=== PATIENT | female | born 1940 | race Caucasian/White ===

== ENCOUNTER 2019-10-01 22:28 | Inpatient (IN) | payer MEDICARE, OTHER ==
[~2019-10-01] VITALS: Ht 162.6 cm; Wt 54.9 kg
[2019-10-02] MEDS ORDERED: TEMAZEPAM 7.5 MG CAPSULE PO PRN (00:30)
[2019-10-02] MEDS ORDERED: MAG HYDROX/AL HYDROX/SIMETH 30 ML UDC PO PRN (00:30)
[2019-10-02] MEDS ORDERED: ACETAMINOPHEN 325 MG TABLET PO PRN (00:30)
[2019-10-02] MEDS ORDERED: LORAZEPAM 0.5 MG TABLET PO PRN (00:30)
[2019-10-02] MEDS ORDERED: MAGNESIUM HYDROXIDE 30 ML UDC PO PRN (00:30)
[2019-10-02] MEDS ORDERED: BLOOD SUGAR DIAGNOSTIC 1 EACH STRIP IN ONE (01:00)
[2019-10-02 02:36] VITALS: BP 136/56
--- NOTE | 2019-10-02 02:44 | NUR ---
GPS LOGGING TRACTOR OPERATOR SWAMP NOTES: ADMITTED 79 Y/O FEMALE. PT ADMITTED FROM [facility] TO GPS UNIT ON A 5150. PER HOLD PT HAS NEEDED PROMOTING TO EAT, SHOWER AND CHANGE HER CLOTHING. PT WAS ALSO REPORTED TO MAKING SUICIDAL STATEMENT. PER PT CLAIMS SHE IS SHE DOESNT KNOW WHY SHE IS HERE AND THAT SHE IS "GOOD". UPON FACE TO FACE ASSESSMENT PT IS A/ O X2, UNCOOPERATIVE, ANXIOUS, NONCOMPLIANT, FORGETFUL, AND EASILY AGITATED. PT HUGH SI AND HI AT THIS TIME. PT REFUSED TO SIGN CONSENT PAPERS. ENVIRONMENTAL SAFETY CHECK Q15MIN. ENCOURAGE PT TO VERBALIZE FEELINGS AND CONCERNS. ORIENTED TO THE UNIT. BELONGING AND CONTRABAND WERE DONE AND CHECKED. NURSING ASSESSMENT DONE. UNABLE TO ASSESS PT BODY AND SKIN DUE TO REFUSAL OF PT. TOOK PICTURE OF PT FACE FOR IDENTIFICATION AND OUT IN CHART. PT RIGHTS DISCUSS BY VICE PRESIDENT MARKETING & DEVELOPMENT. PROVIDED PT WITH HANDBOOK AND MED GUIDE. TOOK PTS INITIAL BLOOD SUGAR. VITALS TAKEN ANS WNL. NO S/S PF RESP DISTRESS. BREATHING EVEN AND UNLABORED. CONTINUE TO MONITOR.
[2019-10-02] MEDS ORDERED: MOMETASONE INH (04:32)
[2019-10-02] MEDS ORDERED: ALBUTEROL HFA INH (04:32)
[2019-10-02] MEDS ORDERED: LORA10TA7 PO (04:32)
[2019-10-02] MEDS ORDERED: ALBU8.5H8 INH (04:32)
[2019-10-02 06:58] LABS: BASOPHILS % (AUTO) 0.8 % (0.0-2.0); EOSINOPHILS % (AUTO) 2.7 % (0.0-6.0); HEMATOCRIT 36 % (33-45); HEMOGLOBIN 11.8 g/dL (11.5-14.8); LYMPHOCYTES # (AUTO) 1.3 /CMM (0.8-4.8); LYMPHOCYTES % (AUTO) 21.6 % (20.0-44.0); MEAN CORPUSCULAR HGB CONC 33 g/dl (31.0-36.0); MEAN CORPUSCULAR VOLUME 81 fL (82-100); MONOCYTES # (AUTO) 0.8 /CMM (0.1-1.30); MONOCYTES % (AUTO) 13.1 % (2.0-12.0); NEUTROPHILS # (AUTO) 3.7 /CMM (1.8-8.9); NEUTROPHILS % (AUTO) 61.8 % (43.0-81.0); PLATELET COUNT (AUTO) 225 /CMM (150-450); RED BLOOD CELL COUNT(AUTO) 4.37 MIL/uL (4.0-5.2)
[2019-10-02 07:22] LABS: CALCIUM, SERUM 9.1 mg/dL (8.5-10.1); CREATININE 1.1 mg/dL (0.6-1.3)
[2019-10-02 07:30] LABS: POTASSIUM 2.7 mmol/L (3.5-5.1)
[2019-10-02 08:00] VITALS: BP 142/72
[2019-10-02 08:01] LABS: CHOLESTEROL 150 mg/dL (<200); HDL CHOLESTEROL 61 mg/dL (40-60); LDL 83 mg/dL (0-99); TRIGLYCERIDES 58 mg/dL (30-150)
[2019-10-02] MEDS ORDERED: MOME17SP (08:12)
[2019-10-02] MEDS ORDERED: ALBU8.5H8 IH (08:12)
--- NOTE | 2019-10-02 08:44 | NUR ---
GPS/RN-NOTES DR. BRASHER MADE AWARE OF PATIENT POTASSIUM LEVEL OF 2.7 WITH T.O ORDER OF POTASSIUM 80 MEQ X1 AND REPEAT BMP TOMORROW. NOTED AND CARRIED OUT.
[2019-10-02] MEDS ORDERED: ALBUTEROL 90 MCG INH SCH (09:00)
[2019-10-02] MEDS: LORATADINE 10 MG TABLET PO SCH (09:18)
[2019-10-02] MEDS: POTASSIUM CHLORIDE 20 MEQ TAB.PRT.SR PO SCH ×2 (09:18→12:29)
--- NOTE | 2019-10-02 12:25 | NUR ---
Family Contact: SW spoke to the pts daughter, Carlotta ([phone]), and informed her that the pt is refusing to speak to her at this time. SW received collateral information from the pts daughter and then went on to discuss that the pt may be discharged back home or to a [place] [facility] [place] facility depending on what her needs are in a few days and how she responds to the treatment. SW stated that she would keep her updated.
--- NOTE | 2019-10-02 13:43 | NUR ---
Initial Discharge Plan: Pt currently lives in her trailer located at [address] [place] [address], [place] [address]; ([phone]). Per pt, she would like to return to her home. SW will work with the pt and the MD regarding appropriate discharge planning. SW will form a safe and proper discharge plan.
[2019-10-02] MEDS ORDERED: MOMETASONE 220 MCG INH SCH (18:00)
[2019-10-02] MEDS ORDERED: OLANZAPINE 2.5 MG TABLET PO SCH (20:00)
[2019-10-02 20:36] VITALS: BP 144/55
[2019-10-03 07:26] LABS: CALCIUM, SERUM 8.6 mg/dL (8.5-10.1); CREATININE 1.2 mg/dL (0.6-1.3); POTASSIUM 3.6 mmol/L (3.5-5.1)
[2019-10-03] MEDS: LORATADINE 10 MG TABLET PO SCH (09:00)
[2019-10-03 09:04] VITALS: BP 130/78
--- NOTE | 2019-10-03 09:21 | NUR ---
GPS/RN-NOTES PATIENT REFUSED CLARITIN 10MG P.O DESPITE EXPLANATION RISK AND BENEFITS. STATED" I WILL NOT TAKE ANY MEDICATION BECAUSE THEY ARE POISON,YOU TAKE IT YOURSELF ". OFFERED X3.
[2019-10-03] MEDS: OLANZAPINE 2.5 MG TABLET PO SCH ×2 (12:30→20:53)
--- NOTE | 2019-10-03 14:09 | NUR ---
GPS/RN-NOTES PATIENT REFUSED ZYPREXA 2.5 MG P.O DESPITE EXPLANATION RISK AND BENEFITS. STATED" I DON'T TAKE THAT BECAUSE WHO EVER ORDER IT WANTS ME ". OFFERED X3.
[2019-10-03 16:08] VITALS: BP 117/53
--- NOTE | 2019-10-03 19:20 | NUR ---
RN OPENING NOTES: PT. RESTING IN BED ,UNCOOPERTIVE CONFUSED PARANOID , HYPERVERBAL ,DISORGNIZED EASILY AGITATED , ALL NEEDS ATTENDED ANTICIPATED, ENCOURAGED PT. TO VERBALIZED ANY FEELING , NO ACUTE DISTRESS NOTED , NEEDS FREQUENTLY REDIRECTIONS , NON COMPLY WITH CARE ,REALITY ORIENTIONS PROVIDED, WILL CONTINUITY WITH CARE.
[2019-10-03 20:00] VITALS: BP 149/70
[2019-10-04 08:00] VITALS: BP 148/74
[2019-10-04] MEDS: LORATADINE 10 MG TABLET PO SCH ×2 (08:06→08:13)
[2019-10-04] MEDS: OLANZAPINE 2.5 MG TABLET PO SCH ×3 (08:06→20:58)
--- NOTE | 2019-10-04 08:14 | NUR ---
RN NOTE: PT REFUSED PO CLARITIN AND ZYPREXA. EDUCATED PT RE IMPORTANCE OF MEDICATION COMPLIANCE. PT CONTINUED TO REFUSE X 3. "THERE'S NOTHING WRONG WITH ME".
--- NOTE | 2019-10-04 09:00 | NUR ---
RN OPENING NOTE: RECEIVED PT LYING IN BED. NO ACUTE DISTRESS NOTED. VSS, AFEBRILE. PT A+OX1.PT REFUSED AM MEDICATIONS X 3. "NOTHING IN WRONG WITH ME". PT IS ISOLATIVE AND WITHDRAWN. + PARANOIA. BELIEVES MEDICATIONS ARE POISON. PT IS UNCOOPERATIVE WITH MEDICATION ADMINISTRATION AND PLAN OF CARE. PT DENIES CURRENT SI/HI/AH/VH. WILL CONT TO MONITOR FOR SAFETY AND BEHAVIOR PER GPS PROTOCOL
[2019-10-04 16:00] VITALS: BP 118/69
--- NOTE | 2019-10-04 19:37 | NUR ---
GPS RN OPENING NOTES: PT. WALKING AROUND THE UNIT , UNCOOPERTIVE ,CONFUSED PARANOID ,DISORGNIZED EASILY AGITATED , ALL NEEDS ATTENDED ANTICIPATED, ENCOURAGED PT. TO VERBALIZED ANY FEELING , NO ACUTE DISTRESS NOTED , NEEDS FREQUENTLY REDIRECTIONS , REALITY ORIENTIONS PROVIDED, WILL CONTINUITY WITH CARE.
[2019-10-04 20:25] VITALS: BP 151/71
[2019-10-04 22:30] VITALS: BP 130/70
--- NOTE | 2019-10-05 07:40 | NUR ---
RN OPENING NOTE: RECEIVED PT LYING IN BED. NO ACUTED DISTRESS NOTED. VSS, AFEBRILE. PT IS DISHEVELED AND UNKEPT. PT ISOLATIVE AND WITHDRAWN. PT COMPLIANT WITH PO MEDICATIONS THIS AM WITH ENCOURAGEMENT. PT IS ANGRY AND BLUNT. PARANOID AND DELUSIONAL. PT UNABLE TO UNDERSTAND CONCEPTS OF ADMISSION. NEEDS FREQUENT REDIRECTION. EASILY AGITATED. PT DENIES SI/HI AT PRESENT TIME. PATIENT EDUCATED ON USE OF THE CALL LANDAVERDE. SIDE RAILS UP X2 FOR SAFETY. BED IN LOW AND LOCKED POSITION. WILL CONT TO MONITOR PT FOR SAFETY AND BEHAVIOR PER GPS PROTOCOL
[2019-10-05 08:00] VITALS: BP 135/57
[2019-10-05] MEDS: OLANZAPINE 2.5 MG TABLET PO SCH ×2 (08:22→20:20)
[2019-10-05] MEDS: LORATADINE 10 MG TABLET PO SCH (08:22)
[2019-10-05 16:09] VITALS: BP 147/64
[2019-10-05 20:11] VITALS: BP 108/93
--- NOTE | 2019-10-06 00:54 | NUR ---
GPS RN NOTES: REFUSED WEEKLY SKIN ASSESSMENT PT REFUSED WEEKLY BODY AND SKIN ASSESSMENT PICTURE DAY. PT EASILY AGITATED AND REQUEST TO BE LEFT ALONE. EXPLAIN RISKS AND BENEFITS. PT STILL REFUSED X3. CONTINUE TO MONITOR.
--- NOTE | 2019-10-06 07:40 | NUR ---
RN OPENING NOTE: RECEIVED PT LYING IN BED. NO ACUTE DISTRESS NOTED. VSS, AFEBRILE. NO RESPIRATORY DISTRESS NOTED. PT IS ANGRY AND EASILY AGITATED. VERBALLY AGRESSIVE. PT IS DISHEVELED AND UNCLEAN. PT INDEPENDENT WITH ADLS AND AMBULATORY. PT COMPLIANT WITH MEDICATION ADMINISTRATION WITH ENCOURAGEMENT. PT RUMINATING RE DISCHARGE. PT DENIES SI/HI AT PRESENT
[2019-10-06 08:00] VITALS: BP 129/57
[2019-10-06] MEDS: LORATADINE 10 MG TABLET PO SCH (08:11)
[2019-10-06] MEDS: OLANZAPINE 2.5 MG TABLET PO SCH ×2 (08:11→21:05)
--- NOTE | 2019-10-06 15:51 | NUR ---
Group Note: SW encouraged pt to attend group therapy on 10/06/19 at 2pm discussing discharge planning. S: I want to be discharged back to my mobile home with my friend sitting here next to me. I do not want to be here in the hospital anymore and I do not want to be placed anywhere. "What are you ladies going to do when you go to [facility]using [facility]." O: Pt was present during the group session and was cooperative. Pt appeared to be in a euthymic mood and presented with an anxious affect. Pt was attentive and provided feedback to all of the other patients who attended. Pt was able to appropriately maintain eye contact and tone of voice throughout the assessment. A: Pt realized that she will be discharged to a location of her choice. She stated that she understands that she has to be in a place that is considered a safe placement but as long as she has her friends around then that means there will be support in her home. P: Pt will continue milieu treatment and medication stabilization.
[2019-10-06 16:00] VITALS: BP 148/73
--- NOTE | 2019-10-06 19:10 | NUR ---
GPS RN OPENING NOTES: RECEIVED PT. RESTING IN BED, A & O X 2, NON COMPLAINT WITH CARE & MEDS, CONFUSED, FORGETFUL, PARANOID, HYPERVERBAL, DISORGANIZED, EASILY AGITATED. DENIES SI/HI AT THIS TIME. AMBULATORY/STEADY PER AM RN REPORT. WILL MONITOR CLOSELY FOR FALL PREVENTION. ALL NEEDS ATTENDED & ANTICIPATED. ENCOURAGED PT. TO VERBALIZED FEELINGS, NO ACUTE DISTRESS NOTED, NEEDS FREQUENT REDIRECTIONS, REALITY ORIENTATION PROVIDED, BED IN LOW LOCKED POSITION. BED ALARM ON. WILL CONTINUE TO MONITOR Q15 MINS. FOR MOOD, SAFETY & BEHAVIOR.
[2019-10-06 20:05] VITALS: BP 133/45
--- NOTE | 2019-10-06 20:45 | NUR ---
GPS RN NOTE PATIENT HAD 2 PUDDING & PO FLUIDS TOLERATED AT THIS TIME. WILL CONTINUE TO ENCOURAGE PO INTAKE TOLERATED.
--- NOTE | 2019-10-07 07:40 | NUR ---
RN OPENING NOTE: RECEIVED PT LYING IN BED. A+OX2. VSS, AFEBRILE. PT UNCOOPERATIVE WITH CARE. REFUSED AM MEDICATIONS MULTIPLE TIMES BEFORE TAKING IT. PT IS DEPRESSED WITH FLAT AFFECT. PT DISHEVELED AND INDEPENDENT WITH ADLS. PT EASILY ANGERED AND AGITATED. NEEDS FREQUENT REDIRECTION. PT PARANOID AND DELUSIONAL. PT DENIES SI/HI/AH/VH AT PRESENT TIME. WILL CONT TO MONITOR PT FOR SAFETY AND BEHAVIOR PER GPS PROTOCOL
[2019-10-07] MEDS: LORATADINE 10 MG TABLET PO SCH (08:12)
[2019-10-07] MEDS: OLANZAPINE 2.5 MG TABLET PO SCH ×4 (08:12→20:08)
--- NOTE | 2019-10-07 12:07 | NUR ---
Probable (PC) Hearing Notification: SW spoke to the pts daughter, Carlotta ([phone]), and informed her of what the hearings entail. She stated that she was on her way to the hospital at this moment and that she would like to be part of the hearing if she can.
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
--- NOTE | 2019-10-07 12:33 | NUR ---
Family Contact: SW spoke to the pts daughter, Carlotta ([phone]), and informed her that the pts hearing has been conducted and that the pt will remain on her hold.
[2019-10-07 16:00] VITALS: BP 136/56
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
[2019-10-07 20:34] VITALS: BP 135/71
[2019-10-08 08:00] VITALS: BP 105/56
[2019-10-08] MEDS: LORATADINE 10 MG TABLET PO SCH (08:13)
[2019-10-08] MEDS: OLANZAPINE 2.5 MG TABLET PO SCH ×2 (08:13→12:12)
[2019-10-08 16:00] VITALS: BP 124/73
--- NOTE | 2019-10-08 16:16 | NUR ---
Group Note: SW encouraged pt to attend group therapy on 10/08/19 at 2pm discussing decision making. Pt was present but refused to cooperate and just listened to the rest of her peers discussing this topic. When the SW asked her at the end of the group why she did not participate, pt stated that she did not care for the topic.
[2019-10-08 20:00] VITALS: BP 125/39
[2019-10-08] MEDS: OLANZAPINE 10 MG TABLET PO SCH (21:24)
[2019-10-08 21:26] VITALS: BP 125/77
[2019-10-09 08:00] VITALS: BP 116/55
[2019-10-09] MEDS: LORATADINE 10 MG TABLET PO SCH (08:39)
[2019-10-09] MEDS: OLANZAPINE 2.5 MG TABLET PO SCH ×2 (08:39→12:08)
--- NOTE | 2019-10-09 10:22 | NUR ---
SNF Referral: SW faxed a referral to [facility] with attn to Luigi to the fax number: [phone].
--- NOTE | 2019-10-09 10:35 | NUR ---
Family Contact: Pts daughter, Carlotta ([phone]), called the SW and stated that she found paperwork at the pts house that would provide her with the power to make financial and medical decisions. SW stated that she would need to send the paperwork to the hospital so we can determine if the pts daughter can make a decision regarding her discharge.
--- NOTE | 2019-10-09 13:46 | NUR ---
SNF Contact: SW spoke to Kat ([phone]) from [facility] who stated that the pt was not accepted because her Medicare became in question after she was in [facility].
[2019-10-09 16:00] VITALS: BP 145/79
[2019-10-09] MEDS: DIVALPROEX SODIUM 125 MG CAP.SPRINK PO SCH (17:25)
[2019-10-09 20:00] VITALS: BP 159/75
[2019-10-09] MEDS: OLANZAPINE 10 MG TABLET PO SCH (22:09)
[2019-10-10 08:00] VITALS: BP 164/93
[2019-10-10] MEDS: OLANZAPINE 2.5 MG TABLET PO SCH ×2 (08:00→12:06)
[2019-10-10] MEDS: DIVALPROEX SODIUM 125 MG CAP.SPRINK PO SCH ×4 (09:00→21:00)
[2019-10-10] MEDS: LORATADINE 10 MG TABLET PO SCH (09:00)
--- NOTE | 2019-10-10 09:37 | NUR ---
RN NOTES PT REFUSED ALL HER MORNING MEDS DESPITE EXPLAINING RISKS AND BENEFITS OF TAKING THEM. WILL CONTINUE TO MONITOR.
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
[2019-10-10 10:00] VITALS: BP_SYST 156; BP_SYST 166; BP_DIAS 66; BP_DIAS 70
--- NOTE | 2019-10-10 11:16 | NUR ---
RN NOTES PT NOTED WITH HIGH BP OF 164/93MMHG, HR 68. PT WITH NO C/O DISTRESS, HEADACHE OR ANY DISCOMFORTS. DR LLANES'S ELOISA HERNANDEZ ON UNIT AND MADE AWARE. WE BOTH WENT TO ROOM TO ASSESS AND RECHECKED PT'S BP ON LEFT ARM 154/66, HR 72 AND RIGHT ARM 166/70M HR 66. ELOISA HERNANDEZ WILL INFORMED TO DR LLANES. WILL CONTINUE TO MONITOR
[2019-10-10] MEDS: VALSARTAN 80 MG TABLET PO SCH (12:52)
[2019-10-10 20:30] VITALS: BP 124/49
[2019-10-10] MEDS: OLANZAPINE 10 MG TABLET PO SCH (21:57)
--- NOTE | 2019-10-10 21:57 | NUR ---
GPS RN NOTE PT REFUSED PM MEDICATIONS ZYPREXA 5MG AND DEPAKOTE 250 MG. ASKING THIS NURSE TO LEAVE HER ROOM AND NOT COME BACK. AGITATED, ANGRY, AND COMBATIVE. REFUSED REDIRECTION. WILL CONTINUE TO MONITOR FOR MOOD, SAFETY AND BEHAVIOR.
--- NOTE | 2019-10-11 03:36 | NUR ---
GPS RN NOTE PT REFUSED PM MEDICATIONS ZYPREXA 5MG AND DEPAKOTE 250 MG. ASKED THIS NURSE TO LEAVE HER ROOM AND NOT COME BACK. PT DID THE SAME THING LAST NIGHT 10/10/19. AGITATED, ANGRY, AND COMBATIVE. REFUSED REDIRECTION. REFUSED PM CARE. PT IS NONE COMPLIANT WITH POC. ISOLATIVE AND WITHDRAWN. WILL CONTINUE TO MONITOR FOR MOOD, SAFETY AND BEHAVIOR.
[2019-10-11] MEDS: OLANZAPINE 2.5 MG TABLET PO SCH ×3 (08:00→12:58)
[2019-10-11] MEDS: LORATADINE 10 MG TABLET PO SCH ×2 (09:00→10:20)
[2019-10-11] MEDS: DIVALPROEX SODIUM 125 MG CAP.SPRINK PO SCH ×3 (09:00→20:25)
[2019-10-11] MEDS: VALSARTAN 80 MG TABLET PO SCH (09:00)
--- NOTE | 2019-10-11 10:30 | NUR ---
REFUSED AM MEDS WELL VITAL SIGNS.
[2019-10-11 16:00] VITALS: BP 116/59
--- NOTE | 2019-10-11 17:30 | NUR ---
PT. REFUSED LAB DRAW TODAY.
--- NOTE | 2019-10-11 18:40 | NUR ---
REFUSED AFTERNOON AND PAPA. MEDS.
--- NOTE | 2019-10-11 19:56 | NUR ---
GPS/RN OPENING NOTES RECEIVED PATIENT IN BED RESTING, RESPIRATIONS EVEN AND UNLABORED. BED LOCKED, CALL LIGHTS WITHIN REACH. RECEIVED REPORT FROM AM RN FOR REYES.
[2019-10-11 20:00] VITALS: BP 122/67
[2019-10-11 20:55] VITALS: BP 151/66
[2019-10-11] MEDS: OLANZAPINE 10 MG TABLET PO SCH (21:00)
[2019-10-12] MEDS: OLANZAPINE 2.5 MG TABLET PO SCH ×2 (08:00→12:23)
[2019-10-12] MEDS: VALSARTAN 80 MG TABLET PO SCH (09:00)
[2019-10-12] MEDS: LORATADINE 10 MG TABLET PO SCH (09:00)
[2019-10-12] MEDS: DIVALPROEX SODIUM 125 MG CAP.SPRINK PO SCH ×2 (09:00→20:37)
--- NOTE | 2019-10-12 11:00 | NUR ---
GPS RN NOTE; RECEIVED PT.IN THE ROOM RESTING IN BED PATIENT NON COMPLIANT WITH MEDICATIONS REFUSED VS , REFUSED LABS , PT STATED "GET OUT OF MY ROOM " ISOLATIVE, VERBALLY ABUSIVE, EASILY AGITATED .WILL FOLLOW CLOSELY FOR BEHAVIOR AND SAFETY.
--- NOTE | 2019-10-12 11:39 | NUR ---
GPS R NOTE: DR HU NOTIFIED PT REFUSING MEDICATIONS NO NEW ORDERS AT THIS TIME.
[2019-10-12 16:00] VITALS: BP 130/80
[2019-10-12] MEDS: ALBUTEROL FS 2.5 MG/3 ML VIAL.NEB NEB PRN (16:34)
[2019-10-12 20:00] VITALS: BP 113/57
[2019-10-12 20:29] VITALS: BP 113/57
[2019-10-12] MEDS: OLANZAPINE 10 MG TABLET PO SCH (21:45)
--- NOTE | 2019-10-13 00:06 | NUR ---
PATIENT REFUSED BODY ASSESSMENT PATIENT REFUSED WEEKLY FULL BODY ASSESSMENT KAYA, STATED," WHY YOU HAVE TO BOTHER ME ? YOU DON'T HAVE TO CHECK ANYTHING." DESPITE OF RISKS & BENEFITS EXPLANATIONS, PT. CONTINUED TO REFUSE FULL BODY ASSESSMENT, EASILY AGITATED & AGGRESSIVE. WILL MONITOR FOR ANY CHANGES.
[2019-10-13 08:00] VITALS: BP 148/66
[2019-10-13] MEDS: OLANZAPINE 2.5 MG TABLET PO SCH ×2 (08:00→13:00)
[2019-10-13] MEDS: VALSARTAN 80 MG TABLET PO SCH (08:59)
[2019-10-13] MEDS: DIVALPROEX SODIUM 125 MG CAP.SPRINK PO SCH ×2 (08:59→21:29)
[2019-10-13] MEDS: LORATADINE 10 MG TABLET PO SCH (08:59)
--- NOTE | 2019-10-13 12:42 | NUR ---
SNF Referral: REYNOLD faxed a referral to [facility] with attn to Brandi to the fax number: [phone].
--- NOTE | 2019-10-13 13:37 | NUR ---
SNF Contact: SW spoke to Brandi ([phone]) from [facility] and she stated that the pt was accepted to their facility.
[2019-10-13 16:00] VITALS: BP 118/55
[2019-10-13] MEDS: ALBUTEROL FS 2.5 MG/3 ML VIAL.NEB NEB PRN (18:32)
[2019-10-13 21:06] VITALS: BP 142/90
[2019-10-13] MEDS: OLANZAPINE 10 MG TABLET PO SCH (21:29)
[2019-10-14 08:00] VITALS: BP 125/50
[2019-10-14] MEDS: OLANZAPINE 2.5 MG TABLET PO SCH ×2 (08:18→12:59)
[2019-10-14] MEDS: DIVALPROEX SODIUM 125 MG CAP.SPRINK PO SCH ×2 (08:21→20:30)
[2019-10-14] MEDS: LORATADINE 10 MG TABLET PO SCH (08:21)
[2019-10-14] MEDS: VALSARTAN 80 MG TABLET PO SCH (08:23)
[2019-10-14 16:00] VITALS: BP 152/81
[2019-10-14] MEDS: ALBUTEROL FS 2.5 MG/3 ML VIAL.NEB NEB PRN (16:09)
[2019-10-14] MEDS: OLANZAPINE 10 MG TABLET PO SCH (21:11)
[2019-10-14 21:44] VITALS: BP 165/68
[2019-10-15] MEDS: OLANZAPINE 2.5 MG TABLET PO SCH ×2 (07:34→12:37)
[2019-10-15 08:00] VITALS: BP 130/59
[2019-10-15] MEDS: LORATADINE 10 MG TABLET PO SCH (08:36)
[2019-10-15] MEDS: DIVALPROEX SODIUM 125 MG CAP.SPRINK PO SCH ×3 (08:36→21:09)
[2019-10-15] MEDS: VALSARTAN 80 MG TABLET PO SCH (08:39)
--- NOTE | 2019-10-15 09:00 | NUR ---
RN NOTE- PT OPPOSITIONAL TO CARE AND MEDS THOUGH MED COMPLIANT AFTER MUCH ENCOURAGEMENT. PT PROFANE AND IRRITABLE. REPEATS "LEAVE ME ALONE"SLEEPING WITH BLANKETS OVER HEAD. DENIES SI HI VH
[2019-10-15] MEDS: ALBUTEROL FS 2.5 MG/3 ML VIAL.NEB NEB PRN (13:25)
--- NOTE | 2019-10-15 13:30 | NUR ---
RN NOTE- PT REQUESTED NEBULIZER . SATURATION 95%. RT CALLED AND ALBUTEROL NEB GIVEN AT THIS TIME.
--- NOTE | 2019-10-15 15:29 | NUR ---
Group Note: SW encouraged pt to attend group therapy on 10/15/19 at 2pm discussing discharge planning but the pt refused to attend and stated that she does not need group therapy. SW stated that the pt was going to be discharged to a longterm facility and the pt was not comprehending this plan and became agitated. Pt presented as verbally and physically aggressive so the SW deemed the pt inappropriate for group at this time.
[2019-10-15 16:00] VITALS: BP 141/61
--- NOTE | 2019-10-15 18:00 | NUR ---
RN NOTE- PT C/O CHEST DISCOMFORT SIMILAR TO EARLIER BEFORE ALBUTEROL BREATHING TX. VS- B/P- 157/60, HR- 90 RR-18, SATURATION 97%RA AFEBRILE 98.6. NO SOB, AMBULATORY, WILL GIVE TYLENOL 650 MG AND MONITOR PT
[2019-10-15] MEDS ORDERED: CLONIDINE HCL 0.1 MG TABLET PO PRN (18:30)
--- NOTE | 2019-10-15 18:30 | NUR ---
RN NOTE- PT C/O CONTINUED MID STERNAL PAIN. DR PEREZ NOTIFIED OF VS AND SX. ORDERED CLONIDINE 0.5 MG Q6PRN SBP> 150. ORDERS COMPLIED WITH. MONITORING PT AND ONCOMING NOC SHIFT.
--- NOTE | 2019-10-15 18:55 | NUR ---
RN NOTE- RECHECK VS- PT STATES PAIN DECREASED. B/P - 130/63, HR 90, SATURATION 95% RA
--- NOTE | 2019-10-15 19:52 | NUR ---
RN NOTES: PT. IN HER ROOM,SUSPICIOUS , HYPERVERVAL ,FORGETFUL NEEDY, ,CONFUSED ,PARANOID , NEEDY ,DISORGNIZED EASILY AGITATED , TALKING TO SELF, ALL NEEDS ATTENDED ANTICIPATED, ENCOURAGED PT. TO VERBALIZED ANY FEELING , NO ACUTE DISTRESS NOTED , NEEDS FREQUENTLY REDIRECTIONS , REALITY ORIENTIONS PROVIDED, WILL CONTINUITY WITH CARE.
[2019-10-15 20:13] VITALS: BP 140/66
[2019-10-15] MEDS: OLANZAPINE 10 MG TABLET PO SCH (21:08)
--- NOTE | 2019-10-16 07:12 | NUR ---
RN NOTES: PT. RESTING WELL AT THIS TIME, NO ACUTE DISTRESS NOTED,NO SOB NOTED, DENIES ANY CHEST DISCOMFORT AT THIS TIME , WILL ENDORSE TO ON COMING NURSE FOR CONTINUITY OF CARE.
[2019-10-16 08:00] VITALS: BP 100/59
[2019-10-16] MEDS: OLANZAPINE 2.5 MG TABLET PO SCH ×2 (08:02→12:23)
[2019-10-16] MEDS: DIVALPROEX SODIUM 125 MG CAP.SPRINK PO SCH ×3 (08:02→21:16)
[2019-10-16] MEDS: LORATADINE 10 MG TABLET PO SCH (08:02)
[2019-10-16] MEDS: VALSARTAN 80 MG TABLET PO SCH (08:03)
[2019-10-16] MEDS: ALBUTEROL FS 2.5 MG/3 ML VIAL.NEB NEB PRN ×3 (09:07→19:00)
--- NOTE | 2019-10-16 10:45 | NUR ---
GPS RN NOTE: PATIENT IS AGITATED AND IRRITABLE. NOT COMPLIANT WITH CARE. FIRST SPIT OUT MEDICATION BUT WITH ENCOURAGEMENT TOOK MEDICATIONS. PATIENT DENIES SI/HI AND VAH. PATIENT IS AGGRESSIVE. ENVIRONMENTAL CHECKS DONE. BED IN LOCKED POSITION, LOW WITH 2 SIDE RAILS UP. WILL CONTINUE TO MONITOR Q15 FOR MOOD, SAFETY AND BEHAVIOR.
--- NOTE | 2019-10-16 11:35 | NUR ---
Family Contact: Pts daughter, Carlotta ([phone]), called the SW and the SW informed her that the pt got accepted to [facility] and once the MD provides a discharge date the pt will be discharged.
--- NOTE | 2019-10-16 14:10 | NUR ---
Individual Intervention with the pt: REYNOLD informed the pt that she will be discharged to [facility] soon and the pt appeared to be paranoid and stated that the water has been poisoned and that she needs a blood test to see what it is.
--- NOTE | 2019-10-16 14:14 | NUR ---
Family Contact: SW called the pts daughter, Carlotta ([phone]), and left a voicemail that informed her that the pt will be discharged on Sunday.
--- NOTE | 2019-10-16 14:25 | NUR ---
Group Note: SW encouraged pt to attend group therapy on 10/16/19 at 2pm discussing reality testing but the pt refused to attend and stated that she wanted to remain asleep. Pt made delusional statements that something was put in her water to make her feel drowsy and the pt told the SW that she wanted a blood test to see what is in her system. SW deemed the pt inappropriate for group therapy at this time.
[2019-10-16 16:00] VITALS: BP 102/60
--- NOTE | 2019-10-16 19:55 | NUR ---
RN NOTES: PATIENT RESTING IN HER ROOM , HYPERVERVAL ,FORGETFUL NEEDY, ,CONFUSED ,PARANOID , NEEDY ,DISORGNIZED EASILY AGITATED , TALKING TO SELF, ALL NEEDS ATTENDED ANTICIPATED, ENCOURAGED PT. TO VERBALIZED ANY FEELING , NO ACUTE DISTRESS NOTED , NEEDS FREQUENTLY REDIRECTIONS , REALITY ORIENTIONS PROVIDED, WILL CONTINUITY WITH CARE.
[2019-10-16 20:05] VITALS: BP 128/61
[2019-10-16] MEDS: OLANZAPINE 10 MG TABLET PO SCH (21:15)
[2019-10-17 08:00] VITALS: BP 142/77
[2019-10-17] MEDS: OLANZAPINE 2.5 MG TABLET PO SCH (08:00)
[2019-10-17] MEDS: DIVALPROEX SODIUM 125 MG CAP.SPRINK PO SCH ×3 (08:00→21:23)
[2019-10-17] MEDS: VALSARTAN 80 MG TABLET PO SCH (09:00)
[2019-10-17] MEDS: LORATADINE 10 MG TABLET PO SCH (09:00)
--- NOTE | 2019-10-17 09:00 | NUR ---
GPS RN NOTES Patient asleep and resting in bed at this time. Patient refused AM medications. Explained risks and benefits of medications. Patient still refused. Will continue to monitor.
--- NOTE | 2019-10-17 09:30 | NUR ---
GPS RN NOTES Patient awake and resting in bed. Offered and refused AM medications. Explained risks and benefits of medications. Patient still refused. Patient stated, " I don't want them. Go away." Will continue to monitor.
--- NOTE | 2019-10-17 10:43 | NUR ---
Family Contact: SW called the pts daughter, Carlotta ([phone]), and left a voicemail that informed her that the pt will be discharged on Sunday at 12pm.
--- NOTE | 2019-10-17 10:45 | NUR ---
RT PT CALLED FOR TX WENT TO GO ASSESS HER PT REFUSED TX NO SOB SAT 97% HR 90 RR 16 CLEAR EQUAL BILATERAL BREATH SOUNDS NO WHEEZING UPON AUSCULTATION NO RESP DISTRESS INFORMED KT CAO
--- NOTE | 2019-10-17 15:34 | NUR ---
GPS RN NOTES Patient refused lab draws at this time. Explained procedure, risks and benefits. Patient still refused. Notified hydroelectric station operator. hydroelectric station operator spoke with Patient. Patient still refusing. Patient in stable condition. No SOB nor acute distress at this time. Will continue to monitor.
[2019-10-17 16:00] VITALS: BP 130/53
[2019-10-17] MEDS: ALBUTEROL FS 2.5 MG/3 ML VIAL.NEB NEB PRN ×2 (17:34→20:56)
[2019-10-17 20:00] VITALS: BP 147/50
[2019-10-17] MEDS ORDERED: OLANZAPINE 10 MG TABLET PO SCH (22:00)
[2019-10-18 08:00] VITALS: BP 152/67
[2019-10-18] MEDS: LORATADINE 10 MG TABLET PO SCH (08:35)
[2019-10-18] MEDS: OLANZAPINE 2.5 MG TABLET PO SCH (08:35)
[2019-10-18] MEDS: DIVALPROEX SODIUM 125 MG CAP.SPRINK PO SCH ×3 (08:35→21:00)
[2019-10-18] MEDS: VALSARTAN 80 MG TABLET PO SCH (08:35)
[2019-10-18 16:00] VITALS: BP_SYST 129; BP_SYST 139; BP_DIAS 60; BP_DIAS 66
[2019-10-18 20:00] VITALS: BP 155/59
--- NOTE | 2019-10-18 20:14 | NUR ---
GPS RN OPENING NOTE: RECEIVED PT. RESTING IN ROOM. A/O X 1, DISORGANIZED, NEEDY, PARANOID,HYPERVERBAL ,PARANOID,EASILY AGITATED,NO SOB NOTED, NO ACUTE DISTRESS NOTED. VERBALIZATION OF FEELINGS ENCOURAGED.SAFETY PRECAUTIONS MPLEMENTED. WILL CONTINUE TO MONITOR Q15MIN ROUNDS FOR SAFETY AND BEHAVIOR.
[2019-10-18] MEDS ORDERED: OLANZAPINE 10 MG TABLET PO SCH (22:00)
--- NOTE | 2019-10-18 22:20 | NUR ---
rn gps notes patient refused scheduled medication offered x3 despite risk and benefits explained. refused depakote and zyprexa as scheduled. will continue to monitor behavior. patient noted to be agitated and irritable redirect to room.
[2019-10-19 08:00] VITALS: BP 106/66
[2019-10-19] MEDS: OLANZAPINE 2.5 MG TABLET PO SCH (08:35)
[2019-10-19] MEDS: LORATADINE 10 MG TABLET PO SCH (08:35)
[2019-10-19] MEDS: DIVALPROEX SODIUM 125 MG CAP.SPRINK PO SCH ×3 (08:35→21:18)
[2019-10-19] MEDS: VALSARTAN 80 MG TABLET PO SCH (08:36)
[2019-10-19] MEDS: ALBUTEROL FS 2.5 MG/3 ML VIAL.NEB NEB PRN ×2 (13:37→21:39)
[2019-10-19 16:00] VITALS: BP 107/50
[2019-10-19] MEDS ORDERED: OLANZAPINE 10 MG TABLET PO SCH (17:39)
--- NOTE | 2019-10-19 20:30 | NUR ---
RN NOTES: PT. REFUSED WEEKLY FULL BODY SKIN ASSESSMENT AND PICTURES TO BE TAKEN, ENCOURAGED X 3 , RISKS AND BENEFITS EXPLINED , STILL REFUSED ,PT. BEHAVIOR UNCOOPERATIVE AND AGGRESSIVE AT THIS TIME , WILL CONTINUITY WITH CARE.
[2019-10-19 21:12] VITALS: BP 136/97
[2019-10-20 08:00] VITALS: BP 117/47
[2019-10-20] MEDS: OLANZAPINE 2.5 MG TABLET PO SCH (08:18)
[2019-10-20] MEDS: DIVALPROEX SODIUM 125 MG CAP.SPRINK PO SCH ×2 (08:18→12:13)
[2019-10-20 08:19] VITALS: BP 117/47
[2019-10-20] MEDS: VALSARTAN 80 MG TABLET PO SCH (08:19)
[2019-10-20] MEDS: LORATADINE 10 MG TABLET PO SCH (08:19)
--- NOTE | 2019-10-20 08:34 | NUR ---
SNF Contact: REYNOLD spoke to Brandi ([phone]) from [facility] and she stated that the pt no longer has a bed for admission today.
--- NOTE | 2019-10-20 08:35 | NUR ---
SNF Referral: SW faxed a referral to [facility] with attn to Kassidy to the fax number: [phone].
--- NOTE | 2019-10-20 13:05 | NUR ---
SNF Contact: SW spoke to CJ ([phone]) from [facility] who stated that the pt was accepted to their facility.
--- NOTE | 2019-10-20 13:50 | NUR ---
RN NOTE: REPORT GIVEN TO JOSE MERAZ AT [facility] AT [phone].
--- NOTE | 2019-10-20 14:15 | NUR ---
BAKERY PRODUCTS CHECKER NOTE: 79 YEAR OLD FEMALE DISCHARGED TO [facility] IN STABLE CONDITION. PT COMPLIANT WITH MEDICATIONS, COOPERATIVE WITH TREATMENT PLAN. PATIENT DENIES SI/HI AND INSTRUCTED TO GO TO THE CLOSEST ER IF DEVELOPING SI/HI. BEHAVIOR IMPROVED, PSYCHIATRIC TREATMENT PLANS MET, MEDICAL TREATMENT PLANS DEFERRED FOR CONTINUAL MONITORING. EDUCATED PT ABOUT AFTER CARE PLAN AND COPY PROVIDED. RETURNED PERSONAL BELONGINGS TO PT. MEDICATIONS RECONCILED WITH DR. GONZALEZ AND Akhil VILCHIS PROPERTY COORDINATOR FOR CONTINUITY OF CARE. PT UNABLE TO SIGN DISCHARGE PAPERWORK AND REFUSED ADMISSION/DISCHARGE SKIN ASSESSMENT. PT IS AMBULATORY, CONTINENT AND INDEPENDENT WITH SELF CARE. IDENTIFICATION BAND REMOVED AND PT LEFT THE UNIT AT 1415 VIA GURNEY WITH EMS TO BE TRANSPORTED VIA AMBULANCE : TRIP [phone]
--- NOTE | 2019-10-20 15:00 | NUR ---
Discharge Note: Pt was discharged to [facility] located at [address] [place] [id number]; . Pt was transported via [facility] at 2PM. Pts daughter, Carlotta ([phone]), was made aware of the placement. Upon discharge, the pt appeared to be in a euthymic mood and presented with a distressed affect. Pt appeared to be oriented x3 (time, place and self). Pt appeared to be disheveled and ungroomed. Pt denied both suicidal and homicidal ideation as well as auditory and visual hallucinations. Pt will continue to be under the care of her psychiatrist, Dr. Gupta, located at [address], [place] [address]; and cableman, Dr. Gee, located at [address] [place] [address]; .
== END 2019-10-20 14:15 | DRG 885 ==
LOC: GPS 22:28
PROVIDERS: ADMIT Psychiatry & Neurology Psychosomatic Medicine; ATTEND Student in an Organized Health Care Education/Training Program
DX: F25.9 Schizoaffective disorder, unspecified (principal); G93.41 Metabolic encephalopathy; E87.0 Hyperosmolality and hypernatremia; F29 Unspecified psychosis not due to a substance or known physiological condition; F41.9 Anxiety disorder, unspecified; E86.0 Dehydration; E87.6 Hypokalemia; I10 Essential (primary) hypertension; J44.9 Chronic obstructive pulmonary disease, unspecified; K59.00 Constipation, unspecified; Z91.19 Patient's noncompliance with other medical treatment and regimen
CPT/HCPCS: 36415; 80048-TC; 80061-TC; 80164-TC; 82962-TC; 84443-TC; 85025-TC; 87081-TC; 92611-TC; 97116-TC; 97530-TC

== ENCOUNTER 2019-10-23 09:54 | Inpatient (IN) | payer MEDICARE, OTHER ==
[~2019-10-23] VITALS: Ht 154.9 cm; Wt 54.4 kg
[~2019-10-23 09:54] MED LIST: ALBU8.5H8 IH; ALBU8.5H8 INH; LORA10TA7 PO; MOME17SP
--- NOTE | 2019-10-23 10:00 | NUR ---
[facility] C/O R HIP PAIN S/P GLF, PT IS AAOX3, NOTED LOW O2 SAT AT 89% ON RA, HOOKED TO 2LPM VIA NC AND CARDIAC MONTIOR, KEPT RESTED AND COMFORTABLE, WILL CONTINUE TO MONITOR.
[2019-10-23] MEDS ORDERED: ACET-868 PO ×2 (10:11)
[2019-10-23] MEDS ORDERED: DIVA125C2 PO (10:11)
[2019-10-23] MEDS ORDERED: VALS80TA31 PO (10:11)
[2019-10-23] MEDS ORDERED: OLAN5TAB3 PO (10:11)
[2019-10-23] MEDS ORDERED: MAGN400O6 PO (10:11)
[2019-10-23] MEDS ORDERED: MAG30ORA PO (10:11)
[2019-10-23] MEDS ORDERED: CLON0.1T PO (10:11)
[2019-10-23] MEDS ORDERED: ALBU2.5V38 IH ×2 (10:11)
[2019-10-23] MEDS ORDERED: OLAN10TA3 PO (10:11)
--- NOTE | 2019-10-23 10:15 | NUR ---
SEEN AND EXAMINED BY DR. AREVALO.
--- NOTE | 2019-10-23 10:20 | NUR ---
IV LINE ESTABLISHED, BLOOD DRAWN AND SENT TO LAB.
--- NOTE | 2019-10-23 10:25 | NUR ---
URINE SPECIMEN COLLECTED VIA PEREZ CATH AND SENT TO LAB.
[2019-10-23 10:31] LABS: BASOPHILS # (AUTO) 0.1 /CMM (0.0-0.2); BASOPHILS % (AUTO) 0.9 % (0.0-2.0); EOSINOPHILS % (AUTO) 0.3 % (0.0-6.0); HEMATOCRIT 38 % (33-45); HEMOGLOBIN 12.2 g/dL (11.5-14.8); LYMPHOCYTES # (AUTO) 0.5 /CMM (0.8-4.8); MEAN CORPUSCULAR HGB CONC 32 g/dl (31.0-36.0); MEAN CORPUSCULAR VOLUME 83 fL (82-100); MONOCYTES # (AUTO) 0.7 /CMM (0.1-1.30); MONOCYTES % (AUTO) 5.9 % (2.0-12.0); NEUTROPHILS # (AUTO) 10.4 /CMM (1.8-8.9); NEUTROPHILS % (AUTO) 88.9 % (43.0-81.0); PLATELET COUNT (AUTO) 210 /CMM (150-450); RED BLOOD CELL COUNT(AUTO) 4.54 MIL/uL (4.0-5.2); WHITE BLOOD COUNT (AUTO) 11.7 K/uL (4.3-11.0)
--- NOTE | 2019-10-23 10:33 | NUR ---
MEETING SPECIALIST AT BEDSIDE FOR XRAY.
[2019-10-23] MEDS ORDERED: ONDANSETRON HCL/PF 4 MG/2 ML VIAL ONE (10:36)
[2019-10-23] MEDS ORDERED: MORPHINE SULFATE INJ 2 MG/ML DISP.SYRIN ONE (10:37)
[2019-10-23 10:40] LABS: CALCIUM, SERUM 8.9 mg/dL (8.5-10.1); CARBON DIOXIDE 27 mmol/L (21-32); CHLORIDE 104 mmol/L (98-107); CREATININE 1.1 mg/dL (0.6-1.3); GLUCOSE 172 mg/dL (74-106); POTASSIUM 4.2 mmol/L (3.5-5.1); SODIUM SERUM 139 mmol/L (136-145); UREA NITROGEN, BLOOD 29 mg/dL (7-18)
[2019-10-23 10:52] LABS: ALANINE AMINOTRANSFERASE 34 U/L (12-78); ALBUMIN 3.1 g/dL (3.4-5.0); ALKALINE PHOSPHATASE 108 U/L (46-116); ASPARTATE AMINOTRANSFERASE 25 U/L (15-37); B-TYPE NATRIURETIC PEPTIDE 1746 PG/ML (0-125); BILIRUBIN,DIRECT 0.1 mg/dL (0.0-0.2); BILIRUBIN,TOTAL 0.4 mg/dL (0.2-1.0); TOTAL PROTEIN, SERUM 7.6 g/dL (6.4-8.2)
[2019-10-23] MEDS ORDERED: MORPHINE SULFATE INJ 2 MG/ML DISP.SYRIN IV ONE (11:00)
[2019-10-23 11:01] LABS: APPEARANCE,URINE Clear (CLEAR); BILIRUBIN,URINE Negative (NEGATIVE); BLOOD, URINE Trace-intact Ery/uL (NEGATIVE); COLOR,URINE Yellow (YELLOW); KETONES,URINE Trace (NEGATIVE); LEUKOCYTE ESTERASE ,URINE Negative (NEGATIVE); NITRITE, URINE Negative (NEGATIVE); PROTEIN,URINE Negative (NEGATIVE); UGLUCOSE Negative (NEGATIVE); UROBILINOGEN,URINE 0.2 EU/dL (0.2)
[2019-10-23 11:10] LABS: BACTERIA,URINE Few /HPF (None Seen); SQUAMOUS EPITHELIAL CELL,UR Few /HPF (None Seen); WBC,URINE 0-2 /HPF (0-3)
--- NOTE | 2019-10-23 11:17 | NUR ---
SPOKED TO PT'S DAUGHTER SANTANA FOR UPDATE NUMBER: [phone]
[2019-10-23] MEDS ORDERED: ONDANSETRON HCL/PF - ER 4 MG/2 ML VIAL IV ONE (11:30)
--- NOTE | 2019-10-23 12:20 | NUR ---
CALLED FOR MS BED AND SUBMITTED MOVE SHEET TO ADMITTING
--- NOTE | 2019-10-23 12:23 | NUR ---
GOT BED 309-1
[2019-10-23] MEDS ORDERED: AZITHROMYCIN 500 MG in IV D5W 250 ML IV ONE (12:30)
[2019-10-23] MEDS ORDERED: CEFTRIAXONE 1GM BAG (ER ONLY) 1 GM/50 ML PIGGYBACK IV ONE (12:30)
--- NOTE | 2019-10-23 12:40 | NUR ---
REPORT GIVEN TO KT SARMIENTO FOR REYES, WITH ONGOING ANTIBIOTIC.
[2019-10-23] MEDS ORDERED: CEFTRIAXONE 1 G in IV D5W 50 ML IV ONE (13:00)
--- NOTE | 2019-10-23 13:15 | NUR ---
MS BOX CUTTER NOTES Received Patient resting in bed. A/O x 1. VS stable with no acute distress. Breathing even and unlabored on 2LPM via NC with no respiratory distress. Patient stated pain on right hip upon movement but otherwise comfortable upon rest. Will continue to monitor and will intervene as ordered. Rios Cath in place and patent. 18g PIV on LAC clean, intact, patent and flushing well with D51/2NS infusing at 75ml/hr. Safety precautions in place. Bed locked and set to lowest position with side rails x 2 up. All needs rendered at this time. Call light within reach. Will continue to monitor.
[2019-10-23] MEDS ORDERED: ACETAMINOPHEN 325 MG TABLET PO PRN (14:30)
[2019-10-23] MEDS ORDERED: MAG HYDROX/AL HYDROX/SIMETH 30 ML UDC PO PRN (14:30)
[2019-10-23] MEDS ORDERED: ZOLPIDEM TARTRATE 5 MG TABLET PO PRN (14:30)
[2019-10-23] MEDS ORDERED: MAGNESIUM HYDROXIDE 30 ML UDC PO PRN (14:30)
[2019-10-23] MEDS ORDERED: Z GUARD REMEDY 2 OZ OINT TP PRN (14:30)
[2019-10-23] MEDS ORDERED: ONDANSETRON HCL/PF 4 MG/2 ML VIAL IVP PRN (14:30)
--- NOTE | 2019-10-23 14:33 | NUR ---
MS RN NOTES Patient removing and pulling on lines. Reoriented Patient and provided comfort measures. Patient still attempting to remove lines. Notified Nyasia DARDEN. Per MD, may order bilateral soft wrist restraints. Order noted and carried out. Patient in stable condition. Will continue to monitor.
[2019-10-23] MEDS: IV D5/0.45 NACL 1,000 ML IV PRN (15:31)
[2019-10-23 16:00] VITALS: BP 134/68
--- NOTE | 2019-10-23 18:20 | NUR ---
GAIL (COUSIN) - Per Carlotta (daughter), Gail makes the medical decisions for Patient. Social Service consult ordered for DPOA arrangement.
--- NOTE | 2019-10-23 18:25 | NUR ---
MS RN CLOSING NOTES Patient asleep and resting in bed. A/O x 1. VS stable with no acute distress. Breathing even and unlabored on 2LPM via NC with no respiratory distress. Denies pain. No signs and symptoms of pain at this time. Rios Cath in place and patent. 18g PIV on LAC clean, intact, patent and flushing well with D51/2NS infusing at 75ml/hr. Safety precautions in place. Soft wrist restraint applied to left wrist. Patient comfortable and compliant with care. Bed locked and set to lowest position with side rails x 2 up. All needs rendered at this time. Call light within reach. Will endorse plan of care to oncoming shift.
--- NOTE | 2019-10-23 19:45 | NUR ---
EYE CLINIC MANAGER: RECEIVED REPORT FROM KILEY MERAZ. PT IN BED, AWAKE, A/O X1, TRYING TO GET OUT OF BED ALTHOUGH SHE'S IN RESTRAINT. PER DAY REPORT PT PULLING OUT LINE AND PEREZ CATHETER. PT OBTAINED RIGHT HIP FRACTURE. IV ACCESS PATENT AND FLUSHING WELL, INFUSING WITH D5 1/2 NS AT 75ML/HR. RECEIVED WITH BILATERAL SOFT WRIST RESTRAINT IN PLACED, PT NOTED WITH GOOD CAPILLARY REFILL, ABLE TO MOVE AND WIGGLE ARMS AND HANDS, RADIAL PULSES PALPABLE. SEEN BY ORTHO/DUGLAS LEODAN. NEEDS CARDIAC CLEARANCE FOR POSSIBLE SURGERY. FOR PT EVAL IN AM. DR BRASHER MADE AWARE OF PT'S MED RECON, PER MD SHE WILL TAKE A LOOK AT IT. SAFETY PRECAUTIONS FOR FALL INITIATED, CALL LIGHT IN REACH, WILL CONTINUE MONITORING PT.
[2019-10-23 20:00] VITALS: BP 142/66
--- NOTE | 2019-10-23 20:39 | NUR ---
rn notes: contacted hospitalist duplication specialist regarding orders, pt pulling out lines and pettit catheter, trying to get out of bed, received with bilateral soft wrist restraint. will need orders from
--- NOTE | 2019-10-23 21:14 | NUR ---
RN NOTES: RECEIVED CALL BACK FROM HOSPITALIST CHICLE GRINDER FEEDER, PER MD ORTIZ TO PUT ON BILATERAL SOFT WRIST RESTRAINT. ORDER READ BACK VERIFIED AND CARRIED OUT. NUTRITIONIST PUBLIC HEALTH PAT MADE AWARE.
--- NOTE | 2019-10-23 22:00 | NUR ---
RN NOTES: RELEASE OF RESTRAINT PROVIDED, HOWEVER PT BECAME VERY AGGRESSIVE, HANDS WENT STRAIGHT TO WHERE CATHETER IS, GOOD THING FIRE PREVENTION CAPTAIN CAUGHT IT, PT ALSO TRIED HITTING STAFF. PUT BACK PT'S RESTRAINT.
[2019-10-23 22:13] VITALS: BP 135/66
--- NOTE | 2019-10-23 22:30 | NUR ---
rn notes: feed pt with 1 cup of pudding, and provided with thickened cranberry juice, pt consumed 1005, no n/v noted, kept on aspirations precautions
--- NOTE | 2019-10-23 23:21 | NUR ---
prn norco: utilized flacc scale, pt noted to have frequent frowns, uneasy, moaning, when ask pt she said its painful when she's moving her right leg, when ask to rate pt didnt answer, pt is confused, a/o x1, flacc scale score of 6. per clinical assessment, recommends pain medication, prn norco 5/325 mg tab po administered to pt at this time. will continue to monitor and reassess .
[2019-10-23] MEDS: HYDROCODONE/APAP 5/325MG 1 EACH TABLET PO PRN (23:24)
[2019-10-24] VITALS (9 sets, daily range): BP systolic 99–142; BP diastolic 47–93
--- NOTE | 2019-10-24 01:00 | NUR ---
RN NOTES: SEEN PT SLEEPING, SNORING, APPEARS CALM AND COMFORTABLE, NO FACIAL GRIMACE NOTED.
[2019-10-24] MEDS: IV D5/0.45 NACL 1,000 ML IV PRN (03:35)
[2019-10-24 06:25] LABS: BASOPHILS % (AUTO) 0.5 % (0.0-2.0); EOSINOPHILS % (AUTO) 2.1 % (0.0-6.0); HEMATOCRIT 35 % (33-45); HEMOGLOBIN 11.5 g/dL (11.5-14.8); LYMPHOCYTES # (AUTO) 1.1 /CMM (0.8-4.8); LYMPHOCYTES % (AUTO) 13.9 % (20.0-44.0); MEAN CORPUSCULAR HGB CONC 33 g/dl (31.0-36.0); MEAN CORPUSCULAR VOLUME 84 fL (82-100); MONOCYTES # (AUTO) 0.7 /CMM (0.1-1.30); MONOCYTES % (AUTO) 9.6 % (2.0-12.0); NEUTROPHILS # (AUTO) 5.7 /CMM (1.8-8.9); NEUTROPHILS % (AUTO) 73.9 % (43.0-81.0); PLATELET COUNT (AUTO) 174 /CMM (150-450); RED BLOOD CELL COUNT(AUTO) 4.21 MIL/uL (4.0-5.2); WHITE BLOOD COUNT (AUTO) 7.8 K/uL (4.3-11.0)
--- NOTE | 2019-10-24 06:37 | NUR ---
rn notes: contacted ymaile [phone], no answer, directs thru a voicemail, left a message, awaiting for call back. this call is to made family aware of the restraint ordered for the pt due to aggressive behavior, and episode of pulling out lines and pettit catheter.
--- NOTE | 2019-10-24 06:41 | NUR ---
END OF SHIFT REPORT: PRN NORCO ADMINISTERED FOR C/O RIGHT HIP PAIN. PT ABLE TO SWALLOW, CARDIAC PUREED DIET, ASPIRATIONS PRECAUTIONS FOLLOWED. REMAINS ON 2L OXYGEN, PT 90% SPO2 ON RA. REMAINS A/O X1, CONFUSED, WITH BILATERAL SOFT WRIST RESTRAINT. PT ABLE TO MOVE AND WIGGLE ARMS AND HANDS, WITH GOOD CAPILLARY REFILL NOTED, RADIAL PULSES PALPABLE, NO S/S OF IMPEDIMENT IN CIRCULATION NOTED. PEREZ CATHETER REMAINS IN PLACED, BAG EMPTIED BY PROCESSING TECH. FOR PT EVAL TODAY, CARDIO CURRENTLY IN THE UNIT, NOTIFIED DR ALBERTO FOR CARDIAC CLEARANCE FOR POSSIBLE SURGERY. VS REMAINS STABLE, NEEDS ATTENDED. SAFETY PRECAUTIONS FOR FALL REMAINS ENGAGED, CALL LIGHT IN REACH, WILL ENDORSE TO DAY RN FOR CONTINUITY OF CARE.
[2019-10-24 06:52] LABS: CALCIUM, SERUM 8.7 mg/dL (8.5-10.1); MAGNESIUM 2.2 mg/dL (1.8-2.4); PHOSPHORUS 3.3 mg/dL (2.5-4.9); POTASSIUM 4.4 mmol/L (3.5-5.1)
[2019-10-24] MEDS ORDERED: DIVALPROEX SODIUM 125 MG CAP.SPRINK PO SCH (07:00)
[2019-10-24] MEDS ORDERED: ACETAMINOPHEN 325 MG TABLET PO PRN ×2 (07:00→08:30)
[2019-10-24] MEDS ORDERED: ALBUTEROL FS 2.5 MG/3 ML VIAL.NEB IH PRN (07:00)
[2019-10-24 07:07] LABS: THYROID STIMULATING HORMONE 5.554 uIU/mL (0.358-3.74)
--- NOTE | 2019-10-24 07:52 | NUR ---
m/s inside meter tester: cardio consult seen by dr. hardy and cleared for surgery. clement fox (tracey) notified and made aware with order to keep her npo and will ask family if they want surgery or not. order read back and carried out.
[2019-10-24] MEDS: ALBUTEROL FS 2.5 MG/3 ML VIAL.NEB IH SCH ×2 (08:17→20:03)
[2019-10-24] MEDS ORDERED: MAG HYDROX/AL HYDROX/SIMETH 30 ML UDC PO PRN (08:30)
[2019-10-24] MEDS ORDERED: MAGNESIUM HYDROXIDE 30 ML UDC PO PRN (08:30)
[2019-10-24] MEDS ORDERED: CLONIDINE HCL 0.1 MG TABLET PO PRN (08:30)
[2019-10-24] MEDS: VALSARTAN 80 MG TABLET PO SCH (08:34)
[2019-10-24] MEDS: LORATADINE 10 MG TABLET PO SCH (08:34)
[2019-10-24] MEDS: OLANZAPINE 5 MG TABLET PO SCH (08:34)
--- NOTE | 2019-10-24 09:20 | NUR ---
m/s note teller: notes seen by clement fox (p.a.) with order to Obtain consent for <right hip hemiarthroplasty. order acknowledged. per clement, he already spoken to yamile (dpoa, cousin) and consented over the phone. informed clement (p.a.) that i need to verify that to pt's daughter due to no dpoa copy on chart.
--- NOTE | 2019-10-24 09:30 | NUR ---
m/s protective signal operator: notes ortiz (daughter) notified and aware of pt going for surgery thru conversation from yamile (cousin) and informed me that she will email the papers/text the papers here. per ortiz, have yamile (cousin) provide the consent since his mother appointed him for now until we figure things out as stated. as far surgery goes, i'm okay with it, but need yamile to be called for consents per daughter.
--- NOTE | 2019-10-24 09:40 | NUR ---
m/s forensic science examiner: notes yamile vazquez (cousin, dpoa) notified and made aware of surgery at 1100 today and provided telephone consent for the procedure, anesthesia, and blood products with another nurse as a witness. pt remains npo. pt remains confused and disoriented. reality orientation provided prn. will continue to monitor.
[2019-10-24] MEDS ORDERED: ANESTHESIA TRAY IN PYXIS 1 EA TRAY MC ONE (09:52)
[2019-10-24] MEDS ORDERED: BACITRACIN 50000 UNITS/VIAL ONE (09:53)
[2019-10-24] MEDS ORDERED: BUPIVACAINE 0.5 % PF 150 MG/30 ML VIAL ONE (09:53)
--- NOTE | 2019-10-24 10:37 | NUR ---
M/S SENIOR NET ENGINEER: NOTES TAKEN DOWN TO SURGERY VIA BED WITH CHART AT THIS TIME.
[2019-10-24] MEDS ORDERED: MIDAZOLAM HCL 2 MG/2ML VIAL ONE (10:54)
[2019-10-24] MEDS ORDERED: FAMOTIDINE/PF INJ 20 MG/2 ML VIAL IV ONE (10:55)
[2019-10-24] MEDS ORDERED: ROCURONIUM BROMIDE 50 MG/5 ML ONE (10:55)
[2019-10-24] MEDS ORDERED: FENTANYL PF 250MCG/5ML AMPUL ONE (10:55)
[2019-10-24] MEDS ORDERED: TRANEXAMIC ACID 1,000 MG in IV NS 0.9% 100 ML IV ONE (11:00)
--- NOTE | 2019-10-24 12:37 | NUR ---
BEREAVEMENT COUNSELOR spoke with Simon Rivera and provided him with REYNOLD's email address to send DPOA documentation. Upon receipt of DPOA documentation, REYNOLD gave it to Med Surg 3 CRN Radha for pt's chart.
--- NOTE | 2019-10-24 12:57 | NUR ---
m/s tire technician: notes uri (psych social worker) handed the dpoa papers and will place in chart when pt gets back from surgery.
[2019-10-24 13:47] LABS: BASOPHILS # (AUTO) 0.1 /CMM (0.0-0.2); BASOPHILS % (AUTO) 0.7 % (0.0-2.0); EOSINOPHILS % (AUTO) 2.1 % (0.0-6.0); HEMATOCRIT 28 % (33-45); HEMOGLOBIN 9.3 g/dL (11.5-14.8); LYMPHOCYTES # (AUTO) 1.1 /CMM (0.8-4.8); LYMPHOCYTES % (AUTO) 11.8 % (20.0-44.0); MEAN CORPUSCULAR HGB CONC 33 g/dl (31.0-36.0); MEAN CORPUSCULAR VOLUME 84 fL (82-100); MONOCYTES # (AUTO) 0.7 /CMM (0.1-1.30); MONOCYTES % (AUTO) 7.8 % (2.0-12.0); NEUTROPHILS # (AUTO) 7.5 /CMM (1.8-8.9); NEUTROPHILS % (AUTO) 77.6 % (43.0-81.0); PLATELET COUNT (AUTO) 140 /CMM (150-450); RED BLOOD CELL COUNT(AUTO) 3.32 MIL/uL (4.0-5.2); WHITE BLOOD COUNT (AUTO) 9.6 K/uL (4.3-11.0)
--- NOTE | 2019-10-24 14:50 | NUR ---
m/s cash analyst: notes received pt from recovery room with dx: s/p right hemiarthroplasty. pt difficult to arouse, appears sedated. per recovery nurse, dr. warren (anesthesiologist) is aware and doesn't want to give her any medications. pt hypotensive 99/51 at this time and satting at 93% on 2l/min via n/c. dressing to right hip intact, clean, and dry. will continue to monitor.
--- NOTE | 2019-10-24 15:05 | NUR ---
m/s chief privacy officer: notes dr. warren (anesthesiologist) here and informed me that she only received little medications and doesn't want to give her to wake her up. will continue to monitor. place pt on tele sr=80's.
--- NOTE | 2019-10-24 15:15 | NUR ---
m/s enforcement manager: notes pt remains sedated. tele sr. b/p 103/48, hr 86 and repeat cbc results after surgery reported to dr. matson. will continue to monitor.
--- NOTE | 2019-10-24 15:55 | NUR ---
m/s ceramics teacher: notes change iv fluids to ns at 125ml/hr per dr. matson's order via telephone order.
[2019-10-24] MEDS ORDERED: IV NS 0.9% 1,000 ML BAG IV PRN (16:00)
[2019-10-24] MEDS: IV NS 0.9% 1,000 ML IV PRN (16:08)
--- NOTE | 2019-10-24 16:25 | NUR ---
tele bread icer: notes pt remains sedated, vss. afebrile. hob elevated. on 2l/min via n/c and satting at 99%. will continue to monitor.
--- NOTE | 2019-10-24 16:50 | NUR ---
maxime finish photographer: notes partial linen change, repositioned and kept comfortable. abduction pillow remains in place. pt awaken after repositioning, appears to be confused, just mumbling thai's name. reality orientation provided pnr. mercedes wrist restraints automatic discontinued. will continue to monitor. Addendum: 10/24/19 at 1703 by REBECA KAPLANN pt dozing on and off.
--- NOTE | 2019-10-24 17:30 | NUR ---
m/s speech pathology teacher: notes attempted to put pt's hob, but unable to tolerate due to pain. pt keeps saying thai's name. reality orientation provided prn. needs attended. will continue to monitor.
[2019-10-24] MEDS: OLANZAPINE 10 MG TABLET PO SCH (18:00)
--- NOTE | 2019-10-24 18:00 | NUR ---
tele aircraft machinist: notes held due med due to dozing and off and high risk for aspiration. tele zg=930. needs attended. f/c emptied with 600 ml of clear yellow urine. will continue to monitor.
--- NOTE | 2019-10-24 19:00 | NUR ---
tele roll examiner: notes still awaiting for pt's ancef, called earlier at 1830, spoke to pharmacist and inform me that they are still making it and will bring it up. will endorse accordingly. needs attended. will continue to monitor.
--- NOTE | 2019-10-24 19:30 | NUR ---
tele hydroelectric machinery mechanic helper: notes bedside report given to ninfa (rn) for continuity of care. endorsed ancef iv to given when available.
[2019-10-24] MEDS: CEFAZOLIN 2 GM in IV D5W 100 ML IV SCH (19:50)
--- NOTE | 2019-10-24 19:56 | NUR ---
RN NOTES RECEIVED PATIENT AWAKE, CONFUSED, SLIGHT RESTLESSNESS NOTED, CONNECTED TO TELE MONITOR READS SINUS TACHYCARDIA 111 - 116, NO SOB ON 2 LPM VIA NASAL CANNULA SATING 96%, REPOSITIONED FOR COMFORT, S/P RIGHT HIP HEMIARTHOPLASTY TODAY ABDUCTION PILLOW INPLACE, , DRESSING INTACT AND DRY, SAFETY MEASURES IN PLACE, ASPIRATION PRECAUTION EMPHASIZED, CALL LIGHT WITH IN EASY REACH. IV ON HER LEFT AC G# 18 INTACT AND PATENT. ALL NEEDS ANTICIPATED, WILL CONTINUE TO MONITOR ACCORDINGLY.
[2019-10-25] VITALS (9 sets, daily range): BP systolic 109–145; BP diastolic 59–90
--- NOTE | 2019-10-25 00:08 | NUR ---
RN NOTES STILL RESTLESS AND CONFUSED BUT FOLLOWS DIRECTION, REPOSITIONED FOR COMFORT, ADEQUATE CIRCULATION PROVIDED, SAFETY MEASURES IN PLACED, ABDUCTOR PILLOW MAINTAINED.
[2019-10-25] MEDS: CEFAZOLIN 2 GM in IV D5W 100 ML IV SCH (03:26)
[2019-10-25] MEDS: IV NS 0.9% 1,000 ML IV PRN (06:00)
--- NOTE | 2019-10-25 06:14 | NUR ---
RN NOTES ALL NEEDS ATTENDED AND MET, PATIENT AWAKE THROUGHOUT THE NIGHT, CONFUSED, SLIGHT RESTLESSNESS NOTED, CONNECTED TO TELE MONITOR READS SINUS TACHYCARDIA 111 - 120s, NO SOB ON 2 LPM VIA NASAL CANNULA SATING 96%, REPOSITIONED FOR COMFORT, S/P RIGHT HIP HEMIARTHOPLASTY TODAY ABDUCTION PILLOW INPLACE, , DRESSING INTACT AND DRY, SAFETY MEASURES IN PLACE, ASPIRATION PRECAUTION EMPHASIZED, CALL LIGHT WITH IN EASY REACH. RE INSERTED NEW PERIPHERAL IV SITE ON HER RIGHT FOREARM G#22 INTACT AND PATENT, ASSESSED AND MONITORED BILATERAL SOFT WRIST RESTRAINTS, CHECKED FOR ADEQUATE CIRCULATION, ALL NEEDS ANTICIPATED, WILL ENDORSE TO AM NURSE FOR CONTINUITY OF CARE.
[2019-10-25 06:25] LABS: BASOPHILS % (AUTO) 0.4 % (0.0-2.0); EOSINOPHILS % (AUTO) 0.2 % (0.0-6.0); HEMATOCRIT 29 % (33-45); HEMOGLOBIN 9.7 g/dL (11.5-14.8); LYMPHOCYTES # (AUTO) 0.9 /CMM (0.8-4.8); LYMPHOCYTES % (AUTO) 9.2 % (20.0-44.0); MEAN CORPUSCULAR HGB CONC 33 g/dl (31.0-36.0); MEAN CORPUSCULAR VOLUME 84 fL (82-100); MONOCYTES # (AUTO) 1.1 /CMM (0.1-1.30); MONOCYTES % (AUTO) 11.8 % (2.0-12.0); NEUTROPHILS # (AUTO) 7.7 /CMM (1.8-8.9); NEUTROPHILS % (AUTO) 78.4 % (43.0-81.0); PLATELET COUNT (AUTO) 161 /CMM (150-450); RED BLOOD CELL COUNT(AUTO) 3.49 MIL/uL (4.0-5.2); WHITE BLOOD COUNT (AUTO) 9.8 K/uL (4.3-11.0)
[2019-10-25 06:51] LABS: ALBUMIN 2.4 g/dL (3.4-5.0); BILIRUBIN,TOTAL 0.3 mg/dL (0.2-1.0); CALCIUM, SERUM 8.3 mg/dL (8.5-10.1); CREATININE 1.2 mg/dL (0.6-1.3); PHOSPHORUS 3.5 mg/dL (2.5-4.9); TOTAL PROTEIN, SERUM 6.3 g/dL (6.4-8.2)
--- NOTE | 2019-10-25 07:05 | NUR ---
RN OPENING NOTES RECEIVED PATIENT IN BED RESTING, ON SEMIFOWLERS POSITION WITH BILATERAL SOFT WRIST RESTRAINTS ON, CIRCULATIONS CHECKED. PER REPORT, PATIENT IS CONFUSED AND PULLING IV LINES. PATIENT A/OX 2, WITH CONFUSION. NOT IN ANY FORM OF DISTRESS. NO SOB, ON 2 LPM VIA NASAL CANNULA SATING 96%, REPOSITIONED FOR COMFORT, S/P RIGHT HIP HEMIARTHOPLASTY YESTERDAY. ABDUCTOR PILLOW IN PLACE, DRESSING CLEAN, INTACT AND DRY. SAFETY MEASURES IN PLACE, ASPIRATION PRECAUTION EMPHASIZED. BED IN LOW/LOCKED POSITION. SIDERAILS UP. BED ALARM ON. CALL LIGHT WITH IN EASY REACH. WILL CONT TO MONITOR ACCORDINGLY
[2019-10-25] MEDS: ALBUTEROL FS 2.5 MG/3 ML VIAL.NEB IH SCH ×2 (07:55→19:18)
[2019-10-25] MEDS: LORATADINE 10 MG TABLET PO SCH (09:02)
[2019-10-25] MEDS: OLANZAPINE 5 MG TABLET PO SCH (09:02)
[2019-10-25] MEDS: VALSARTAN 80 MG TABLET PO SCH (09:02)
[2019-10-25] MEDS: ENOXAPARIN SODIUM 30 MG/0.3 ML DISP.SYRIN SQ SCH (09:03)
[2019-10-25] MEDS: OLANZAPINE 10 MG TABLET PO SCH (18:30)
--- NOTE | 2019-10-25 19:15 | NUR ---
RN CLOSING NOTES PATIENT IN STABLE CONDITION. ALL NEEDS ATTENDED AND PROVIDED. ALL DUE MEDICATIONS GIVEN ORDERED. KEPT PATIENT SAFE AND COMFORTABLE. BED IN LOW/LOCKED POSITION. SIDERAILS UP, CALL LIGHT IN REACH. ENDORSED ACCORDINGLY
--- NOTE | 2019-10-25 19:21 | NUR ---
MS RN NOTES RECEIVED ON BED A/O X1,CONFUSED, S/P FALL AT [facility],S/P RIGHT HIP ARTHROPLASTY 10/23,RIGHT HIP DRESSING INTACT AND DRY,DRESSING CHANGE TO BE DONE TOMORROW BY MD,INCONTINENT OF URINE, ABDUCTION PILLOW IN USED,DVT PUMP IN USED.ON BILATERAL SOFT WRIST RESTRAINTS.PATIENT PULLING IV TUBINGS.INCONTINENT OF URINE.IVF IN PROGRESS AT 125ML/HR RATE,SITE PATENT ON RIGHT FORE ARM.WILL CONTINUE TO MONITOR STATUS.
--- NOTE | 2019-10-26 | NUR ---
MS RN NOTES CALM AND QUIET,IVF IN PROGRESS,INCONTINENT,PAIN TOLERABLE..DRESSING CHANGE TO BE DONE TODAY BY NURSE.IN NO ACUTE DISTRESS.
[2019-10-26] MEDS: IV NS 0.9% 1,000 ML IV PRN ×2 (00:35→20:16)
[2019-10-26 05:31] LABS: BASOPHILS % (AUTO) 0.5 % (0.0-2.0); EOSINOPHILS % (AUTO) 0.5 % (0.0-6.0); HEMATOCRIT 29 % (33-45); HEMOGLOBIN 9.3 g/dL (11.5-14.8); LYMPHOCYTES # (AUTO) 0.9 /CMM (0.8-4.8); LYMPHOCYTES % (AUTO) 10.8 % (20.0-44.0); MEAN CORPUSCULAR HGB CONC 32 g/dl (31.0-36.0); MEAN CORPUSCULAR VOLUME 84 fL (82-100); MONOCYTES % (AUTO) 11.9 % (2.0-12.0); NEUTROPHILS # (AUTO) 6.3 /CMM (1.8-8.9); NEUTROPHILS % (AUTO) 76.3 % (43.0-81.0); PLATELET COUNT (AUTO) 184 /CMM (150-450); RED BLOOD CELL COUNT(AUTO) 3.42 MIL/uL (4.0-5.2); WHITE BLOOD COUNT (AUTO) 8.3 K/uL (4.3-11.0)
[2019-10-26 05:45] LABS: ALBUMIN 2.1 g/dL (3.4-5.0); BILIRUBIN,TOTAL 0.3 mg/dL (0.2-1.0); CALCIUM, SERUM 8.3 mg/dL (8.5-10.1); PHOSPHORUS 2.4 mg/dL (2.5-4.9); POTASSIUM 3.6 mmol/L (3.5-5.1); TOTAL PROTEIN, SERUM 6.3 g/dL (6.4-8.2)
--- NOTE | 2019-10-26 06:19 | NUR ---
MS RN NOTES NO SIGNIFICANT CHANGE IN STATUS.TOLERATED REPOSITIONING,IVF INFUSING.KEPT WARM AND COMFORTABLE.ENDORSE TO DAY NURSE FOR REYES.
--- NOTE | 2019-10-26 07:28 | NUR ---
rn opening notes Patient received on 2L nasal cannula, no sob noted, a/o x1 and shows no s/s of pain at this time. s/p R hip hemiarthroplasty 10/23. NS @ 125 ml per hour @ RFA 22. PT eval pending, 7 day hold @ [facility] at this time. Bed at the lowest setting, call light within reach, side rails up x2.
[2019-10-26] MEDS: ALBUTEROL FS 2.5 MG/3 ML VIAL.NEB IH SCH ×2 (07:55→19:57)
[2019-10-26 08:00] VITALS: BP 130/67
[2019-10-26] MEDS: VALSARTAN 80 MG TABLET PO SCH (08:21)
[2019-10-26] MEDS: LORATADINE 10 MG TABLET PO SCH (08:21)
[2019-10-26] MEDS: OLANZAPINE 5 MG TABLET PO SCH (08:21)
[2019-10-26] MEDS: ENOXAPARIN SODIUM 30 MG/0.3 ML DISP.SYRIN SQ SCH (08:22)
[2019-10-26] MEDS ORDERED: K PHOS NEUTRAL 250 MG TABLET PO ONE (09:00)
[2019-10-26 16:00] VITALS: BP 128/79
[2019-10-26] MEDS: OLANZAPINE 10 MG TABLET PO SCH (17:09)
--- NOTE | 2019-10-26 18:11 | NUR ---
rn closing notes Patient remains on 2L nasal cannula, no sob noted, patient shows no s/s of pain at this time. R hip dressing shows no bleeding at this time. With pillow abduction present. PT eval pending. Bed at the lowest setting, call light within reach, side rails up x2.
--- NOTE | 2019-10-26 18:17 | NUR ---
rn closing notes patient remains 4l nasal cannula, no sob noted, NS @ 75 ml per hour R ac 22 present. Patient denies pain at this time. all medication given and all needs met. Antwon Abreu did not want a midline for the patient at this time. Bed at the lowest setting, call light within reach, side rails up x2. Will give report to LINDA MERAZ for REYES bedside. Addendum: 10/26/19 at 1821 by SARAY FIELDS RN ERROR. INFORMATION NOT FOR PATIENT
[2019-10-26 20:00] VITALS: BP 141/63
[2019-10-27] MEDS: IV NS 0.9% 1,000 ML IV PRN (04:30)
[2019-10-27 06:26] LABS: BASOPHILS # (AUTO) 0.1 /CMM (0.0-0.2); BASOPHILS % (AUTO) 0.8 % (0.0-2.0); EOSINOPHILS % (AUTO) 1.7 % (0.0-6.0); HEMATOCRIT 25 % (33-45); HEMOGLOBIN 8.2 g/dL (11.5-14.8); LYMPHOCYTES # (AUTO) 1.1 /CMM (0.8-4.8); LYMPHOCYTES % (AUTO) 17.8 % (20.0-44.0); MEAN CORPUSCULAR HGB CONC 33 g/dl (31.0-36.0); MEAN CORPUSCULAR VOLUME 85 fL (82-100); MONOCYTES # (AUTO) 0.9 /CMM (0.1-1.30); MONOCYTES % (AUTO) 14.5 % (2.0-12.0); NEUTROPHILS # (AUTO) 3.9 /CMM (1.8-8.9); NEUTROPHILS % (AUTO) 65.2 % (43.0-81.0); PLATELET COUNT (AUTO) 186 /CMM (150-450); RED BLOOD CELL COUNT(AUTO) 2.97 MIL/uL (4.0-5.2)
[2019-10-27 06:39] LABS: CALCIUM, SERUM 8.1 mg/dL (8.5-10.1); CREATININE 0.8 mg/dL (0.6-1.3); MAGNESIUM 2.1 mg/dL (1.8-2.4); PHOSPHORUS 2.8 mg/dL (2.5-4.9)
--- NOTE | 2019-10-27 06:48 | NUR ---
RN PM CLOSING NOTES PATIENT ON 3LNC NO SOB NOTED BREATHING IS EVEN AND UNLABORED. NS RUNNING AT 125 ML/HR TO RFA #22. WITH NO S/S OF INFILTRATION. SAFETY PRECAUTIONS IN PLACE BED DOWN AND LOCKED SRX3. ABDUCTOR PILLOW BEING WORNM PATIENT FLACC SCALE OF 1.
--- NOTE | 2019-10-27 07:40 | NUR ---
MS/RN NOTE THE PATIENT IS RECEIVED IN BED. THE PATIENT IS ALERT AND ORIENTED X1. RECEIVING OXYGEN AT 3L/MIN VIA NASAL CANNULA AND DENIES SOB. RESPIRATION REGULAR AND UNLABORED. DENIES PAIN. THE PATIENT IN NO APPARENT DISTRESS. BILATERAL SOFT WRIST RESTRAIN ON: ASSESSED AND NO S/S POOR CIRCULATION OR SKIN BREAKDOWN NOTED. RFA G 22 PATENT AND NS INFUSING AT 125ML/HR AND NO S/S INFILTRATION NOTED. BED LOW AND LOCKED. SIDE RAILS UP X3. CALL LIGHT WITHIN REACH. WILL CONTINUE TO MONITOR.
[2019-10-27 08:00] VITALS: BP 139/70
[2019-10-27] MEDS: ALBUTEROL FS 2.5 MG/3 ML VIAL.NEB IH SCH (08:29)
[2019-10-27] MEDS: OLANZAPINE 5 MG TABLET PO SCH (08:56)
[2019-10-27] MEDS: LORATADINE 10 MG TABLET PO SCH (08:56)
[2019-10-27] MEDS: VALSARTAN 80 MG TABLET PO SCH (08:57)
[2019-10-27] MEDS: ENOXAPARIN SODIUM 30 MG/0.3 ML DISP.SYRIN SQ SCH (08:58)
[2019-10-27 09:13] LABS: *SPE A/G RATIO 0.8 (0.7-1.7); *SPE ALPHA-1-GLOBULIN 0.4 g/dL (0.0-0.4); *SPE ALPHA-2-GLOBULIN 0.9 g/dL (0.4-1.0); *SPE BETA GLOBULIN 1.3 g/dL (0.7-1.3); *SPE GLOBULIN, TOTAL 3.9 g/dL (2.2-3.9); *SPE M-SPIKE Not Observed g/dL (Not Observed); *SPEGAMMA GLOBULIN 1.2 g/dL (0.4-1.8)
[2019-10-27 16:00] VITALS: BP 154/71
[2019-10-27] MEDS: HYDROCODONE/APAP 5/325MG 1 EACH TABLET PO PRN (17:18)
[2019-10-27] MEDS: OLANZAPINE 10 MG TABLET PO SCH (18:00)
--- NOTE | 2019-10-27 18:31 | NUR ---
/KT NOTE THE PATIENT WITH TEMP OF 99.2F. TYLENOL 650 MG PO IS GIVEN. THE PATIENT WITH NO COUGH, RESPIRATION REGULAR AND UNLABORED. THE PATIENT DENIES ANY DISCOMFORT. Addendum: 10/27/19 at 1832 by LOS THACKER RN /KT NOTE DR BRASHER IS AWARE. PER MD BULLARD TO DISCHARGE THE PATIENT.
--- NOTE | 2019-10-27 18:40 | NUR ---
MS/RN NOTE THE PATIENT ALERT AND ORIENTED X1. RECEIVING OXYGEN AT 3L/MIN VIA NASAL CANNULA AND SATURATION IS AT 95%. DENIES SOB. RESPIRATION REGULAR AND UNLABORED. DENIES PAIN. ABDUCTOR PILLOW IN PLACE. PEDAL PULSES PRESENT. RIGHT HIP DRESSING INTACT. REPORT GIVEN TO THE RECEIVING NURSE. PER DR SAMEERA BULLARD TO DISCHARGE THE PATIENT DESPITE TEMP OF 99.2F. THE PATIENT GOT PICKED UP BY THE AMBULANCE. LEFT THE HOSPITAL IN STABLE CONDITION.
== END 2019-10-27 18:40 | DRG 469 ==
LOC: ER 09:56 → MED 12:55 → TELE 10-24 16:04 → MED 10-25 16:10
PROVIDERS: ADMIT Student in an Organized Health Care Education/Training Program; ATTEND Student in an Organized Health Care Education/Training Program
PROC: 0SRR0JZ Replacement of Right Hip Joint, Femoral Surface with Synthetic Substitute, Open Approach (ICD-10-PCS; principal; 2019-10-24)
DX: S72.011A Unspecified intracapsular fracture of right femur, initial encounter for closed fracture (principal); G93.41 Metabolic encephalopathy; X58.XXXA Exposure to other specified factors, initial encounter; Y92.9 Unspecified place or not applicable; I10 Essential (primary) hypertension; J44.9 Chronic obstructive pulmonary disease, unspecified; M19.90 Unspecified osteoarthritis, unspecified site; F03.90 Unspecified dementia, unspecified severity, without behavioral disturbance, psychotic disturbance, mood disturbance, and anxiety; F39 Unspecified mood [affective] disorder; D72.829 Elevated white blood cell count, unspecified; I35.0 Nonrheumatic aortic (valve) stenosis; I34.0 Nonrheumatic mitral (valve) insufficiency; Y93.9 Activity, unspecified; Y92.129 Unspecified place in nursing home as the place of occurrence of the external cause
CPT/HCPCS: 36415; 71045-TC; 72170-TC; 73502; 80048-TC; 80053-TC; 80061-TC; 80076-TC; 81000-TC; 82550-TC; 83615-TC; 83735-TC; 83880; 84100-TC; 84155; 84165; 84439-TC; 84443-TC; 84484-TC; 85025-TC; 85610-TC; 85730-TC; 86140-TC; 86850-TC; 87081-TC; 87086-TC; 88305-TC; 88311-TC; 93307-TC; 94799-TC; 97110-TC; 97112-TC; 97530-TC; G0378; J0456; J0690; J0696; J1650; J2250; J2270; J2405; J2704; J2710; J2765; J3010; J3490; J7030; J7060